=== PATIENT | male | born 1960 | race Caucasian/White ===

== ENCOUNTER 2016-09-22 13:53 | Emergency (ER) | payer OTHER, BC ==
[2016-09-22 14:00] VITALS: BP 155/95; PULSE 79; TEMP 98; BMI 34.8
[2016-09-22] MEDS ORDERED: KETOROLAC TROMETHAMINE 60 MG/2 ML VIAL IM ONE (14:59)
[2016-09-22] MEDS ORDERED: KETOROLAC TROMETHAMINE 60 MG/2 ML VIAL ONE (15:01)
--- NOTE | 2016-09-22 16:09 | PDOC ---
History of Present Illness - General Chief Complaint: Injury Stated Complaint: employee FALL, RT KNEE PAIN Time Seen by Provider: 09/22/16 14:22 History Source: Patient Exam Limitations: No Limitations - History of Present Illness Initial Comments: 09/22/16 16:04 CC right knee pain; both shoulder pain post fall in snow today Occurred: reports: just prior to arrival Severity: reports: moderate Pain Location: reports: lower extremity, upper extremity Method of Injury: Yes: fall (on snow at work today) Past History - Past Medical History Allergies/Adverse Reactions: Allergies Allergy/AdvReac Type Severity Reaction Status Date / Time No Known Drug Allergies Allergy Verified 09/22/16 13:57 Home Medications: Ambulatory Orders Pantoprazole Sodium [Protonix] 40 mg PO DAILY 03/08/15 Amlodipine Besylate/Benazepril [Lotrel 5-20 mg Capsule] 1 each PO DAILY Oxycodone HCl/Acetaminophen [Percocet 5-325 mg Tablet] 1 tab PO Q6H PRN #60 tablet 09/19/15 GI Disorders: Yes (REFLUX) HTN: Yes - Surgical History Abdominal Surgery: Yes (umbalical hernia) Neurologic Surgery: Yes (BACK SX, rt knee) - Psycho/Social/Smoking Cessation Hx Anxiety: No Suicidal Ideation: No Smoking Status: No Smoking History: Never smoked Have you smoked in the past 12 months: No Number of Cigarettes Smoked Daily: 0 If you are a former smoker, when did you quit?: 2010 Information on smoking cessation initiated: No Hx Alcohol Use: No Drug/Substance Use Hx: No Substance Use Type: None Hx Substance Use Treatment: No Review of Systems - Review of Systems Constitutional: No: Chills, Fever, Malaise HEENTM: No: Symptoms Reported Respiratory: No: Symptoms reported, Cough Integumentary: No: Lesions Neurological: No: Symptoms reported, Numbness Hematologic/Lymphatic: Yes: Symptoms Reported *Physical Exam - Vital Signs Last Vital Signs Temp Pulse Resp BP Pulse Ox 98.0 F 79 18 155/95 100 09/22/16 13:57 09/22/16 13:57 09/22/16 13:57 09/22/16 13:57 09/22/16 13:57 - Physical Exam General Appearance: Yes: Appropriately Dressed. No: Apparent Distress HEENT: positive: TMs Normal, Pharynx Normal Neck: positive: Tender, Supple, Lymphadenopathy (R). negative: Rigid, Lymphadenopathy (L) Respiratory/Chest: negative: Chest Tender, Lungs Clear Musculoskeletal: positive: Other (tender to area of both shoulder, FROM; also tender to right Knee lateral aspect, no joint laxity) ED Treatment Course - RADIOLOGY Radiology Studies Ordered: Category Date Time Status KNEE 2 POS-RIGHT [RAD] Stat Radiology 09/22/16 14:59 Completed SHOULDER-LEFT [RAD] Stat Radiology 09/22/16 14:59 Completed SHOULDER-RIGHT [RAD] Stat Radiology 09/22/16 14:59 Completed - Medications Given in the ED: ED Medications Discontinued Medications Generic Name Dose Route Start Last Admin Trade Name Freq PRN Reason Stop Dose Admin Ketorolac Tromethamine 60 mg 09/22/16 14:59 09/22/16 15:11 Toradol Injection - IM 09/22/16 15:00 60 mg ONCE ONE Administration Medical Decision Making - Medical Decision Making 09/22/16 16:07 gave toradol now feeling slight better; xrays= no fxs *DC/Admit/Observation/Transfer Diagnosis at time of Disposition: Strain of knee and leg, right Qualifiers: Encounter type: initial encounter Qualified Code(s): S86.911A - Strain of unspecified muscle(s) and tendon(s) at lower leg level, right leg, initial encounter Strain of shoulder, right Qualifiers: Encounter type: initial encounter Qualified Code(s): S46.911A - Strain of unspecified muscle, fascia and tendon at shoulder and upper arm level, right arm , initial encounter - Discharge Dispostion Disposition: HOME Condition at time of disposition: Stable Admit: No - Patient Instructions Additional Instructions: advil 400mg 3 times daily; see local MD if no better x 3 days - Post Discharge Activity Work/School Note: Back to Work
== END 2016-09-22 16:14 | disposition home or self-care (01) ==
LOC: JERFT 13:53
PROC: 3E0233Z Introduction of Anti-inflammatory into Muscle, Percutaneous Approach (ICD-10-PCS; principal; 2016-09-22)
DX: S86.911A Strain of unspecified muscle(s) and tendon(s) at lower leg level, right leg, initial encounter (principal); S46.911A Strain of unspecified muscle, fascia and tendon at shoulder and upper arm level, right arm, initial encounter; W00.2XXA Other fall from one level to another due to ice and snow, initial encounter; Y93.89 Activity, other specified; Y92.239 Unspecified place in hospital as the place of occurrence of the external cause; Y99.0 Civilian activity done for income or pay; I10 Essential (primary) hypertension; K21.9 Gastro-esophageal reflux disease without esophagitis
CPT/HCPCS: 73030-TC-LT; 73030-TC-RT; 73560-TC-RT; 99281-25

== ENCOUNTER 2017-07-19 14:02 | Emergency (ER) | payer BC, OTHER ==
[2017-07-19 14:07] VITALS: BP 156/88; PULSE 84; TEMP 98.7; BMI 33.5
[2017-07-19] MEDS ORDERED: IBUPROFEN 600 MG TABLET (FP) PO ONE (14:09)
--- NOTE | 2017-07-19 14:51 | PDOC ---
History of Present Illness - General History Source: Patient Exam Limitations: No Limitations <Leslie Santiago - Last Filed: 07/19/17 14:47> - History of Present Illness Initial Comments: 07/19/17 14:51 The patient is a 57 year old male, with a significant past medical history of HTN, borderline diabetes, acid reflux, who presents to the emergency department s/p left hand injury. 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 Patient states he continued to work when he noticed that his hand became noticeably swollen and a bump developed. He states trouble turning the doorknob and putting on his shoes. He rates his current pain 6 or 7/10. He states that he is right-hand dominant. He denies numbness, tingling, bruising. He denies elbow, wrist, or shoulder pain. He denies any recent fevers, chills, headache or dizziness. He denies any recent nausea, vomit, diarrhea or constipation. He denies any recent chest pain or shortness of breath. He denies any recent dysuria, frequency, urgency or hematuria. Allergies: NKA Past surgical history: Meniscus tear. Back surgery. Social History: Occasional alcohol and cigarette use. Denies recreational drug use. Primary Care Physician: Delia Henderson <Tianna Rose - Last Filed: 07/19/17 14:56> - General Chief Complaint: Pain, Acute Stated Complaint: left hand pain Time Seen by Provider: 07/19/17 14:07 Past History - Past Medical History COPD: No GI Disorders: Yes (REFLUX) HTN: Yes - Surgical History Abdominal Surgery: Yes (umbalical hernia) Neurologic Surgery: Yes (BACK SX, rt knee) - Suicide/Smoking/Psychosocial Hx Smoking Status: No Smoking History: Never smoked Have you smoked in the past 12 months: No Number of Cigarettes Smoked Daily: 0 If you are a former smoker, when did you quit?: 2010 Information on smoking cessation initiated: No Hx Alcohol Use: Yes Drug/Substance Use Hx: No Substance Use Type: Alcohol Hx Substance Use Treatment: No <Leslie Santiago - Last Filed: 07/19/17 14:47> <Tianna Rose - Last Filed: 07/19/17 14:56> - Past Medical History Allergies/Adverse Reactions: Allergies Allergy/AdvReac Type Severity Reaction Status Date / Time No Known Drug Allergies Allergy Verified 07/19/17 14:03 Home Medications: Ambulatory Orders Pantoprazole Sodium [Protonix] 40 mg PO DAILY 03/08/15 Amlodipine Besylate/Benazepril [Lotrel 5-20 mg Capsule] 1 each PO DAILY Oxycodone HCl/Acetaminophen [Percocet 5-325 mg Tablet] 1 tab PO Q6H PRN #60 tablet 09/19/15 Metformin HCl [Metformin HCl ER] 500 mg PO DAILY 07/19/17 Rosuvastatin Calcium [Crestor] 0 mg PO HS 07/19/17 Review of Systems - Review of Systems Comments:: 07/19/17 14:52 GENERAL/CONSTITUTIONAL: No fever or chills. No weakness. HEAD, EYES, EARS, NOSE AND THROAT: No change in vision. No ear pain or discharge. No sore throat. GASTROINTESTINAL: No nausea, vomiting, diarrhea or constipation. CARDIOVASCULAR: No chest pain or shortness of breath. RESPIRATORY: No cough, wheezing, or hemoptysis. MUSCULOSKELETAL: +left hand swelling and pain. No joint pain. SKIN: No rash NEUROLOGIC: No headache, vertigo, loss of consciousness, or change in strength/ sensation. <Tianna Rose - Last Filed: 07/19/17 14:56> *Physical Exam - Vital Signs Last Vital Signs Temp Pulse Resp BP Pulse Ox 98.7 F 84 16 156/88 97 07/19/17 14:03 07/19/17 14:03 07/19/17 14:03 07/19/17 14:03 07/19/17 14:03 <Leslie Santiago - Last Filed: 07/19/17 14:47> - Vital Signs Last Vital Signs Temp Pulse Resp BP Pulse Ox 98.7 F 84 16 156/88 97 07/19/17 14:03 07/19/17 14:03 07/19/17 14:03 07/19/17 14:03 07/19/17 14:03 - Physical Exam Comments: 07/19/17 14:53 GENERAL: Awake, alert, and fully oriented, in no acute distress HEAD: No signs of trauma EYES: PERRLA, EOMI, sclera anicteric, conjunctiva clear ENT: Auricles normal inspection, nares patent, Moist mucosa NECK: Normal ROM, supple, no lymphadenopathy, JVD, or masses LUNGS: Breath sounds equal, clear to auscultation bilaterally. No wheezes, and no crackles HEART: Regular rate and rhythm, normal S1 and S2, no murmurs, rubs or gallops ABDOMEN: Soft, nontender, normoactive bowel sounds. No guarding, no rebound. No masses EXTREMITIES: Left lower extremity - FROM, non tender, wrist, shoulder. Dorsal tenderness to palpation over the 2nd and 3d metacarpal. No ecchymosis. Distally neurovascular intact. 2+ radial ulnar pulses. No clubbing or cyanosis. No cords or erythema NEUROLOGICAL: Normal speech SKIN: Warm, Dry, normal turgor, no rashes or lesions noted. <Tianna Rose - Last Filed: 07/19/17 14:56> ED Treatment Course - RADIOLOGY Radiology Studies Ordered: Category Date Time Status HAND- LEFT [RAD] Stat Radiology 07/19/17 14:09 Taken - Medications Given in the ED: ED Medications Discontinued Medications Generic Name Dose Route Start Last Admin Trade Name Freq PRN Reason Stop Dose Admin Ibuprofen 600 mg 07/19/17 14:09 07/19/17 14:18 Motrin - PO 07/19/17 14:10 600 mg ONCE ONE Administration <Leslie Santiago - Last Filed: 07/19/17 14:47> - Medications Given in the ED: ED Medications Discontinued Medications Generic Name Dose Route Start Last Admin Trade Name Freq PRN Reason Stop Dose Admin Ibuprofen 600 mg 07/19/17 14:09 07/19/17 14:18 Motrin - PO 07/19/17 14:10 600 mg ONCE ONE Administration <Tianna Rose - Last Filed: 07/19/17 14:56> Medical Decision Making - Medical Decision Making 07/19/17 14:48 57-year-old male status post left crush injury to his left hand. minimal bony tenderness no ecchymosis and minimal swelling distally neurovascularly intact Differential soft tissue injury versus fracture less likely. Plan NSAIDs x-ray ice and elevation likely outpatient follow-up with hand <Leslie Santiago - Last Filed: 07/19/17 14:47> *DC/Admit/Observation/Transfer - Discharge Dispostion Admit: No <Leslie Santiago - Last Filed: 07/19/17 14:47> - Attestations Scribe Attestion: 07/19/17 14:55 Documentation prepared by Tianna Rose, acting as medical staff specialist for Leslie Santiago MD. <Tianna Rose - Last Filed: 07/19/17 14:56> Diagnosis at time of Disposition: Hand contusion - Discharge Dispostion Disposition: HOME Condition at time of disposition: Improved - Referrals Referrals: Delia Henderson MD [Primary Care Provider] - Yordan Womack MD [Staff Physician] - - Patient Instructions Printed Discharge Instructions: Contusion Additional Instructions: . Ice and elevate your hand to reduce swelling. He can take ibuprofen 600 mg every 8 hours as needed for pain. He can follow-up with a hand specialist as needed for persistent pain beyond 1 week see referral information for Dr. Womack. Return for any problems or concerns - Post Discharge Activity Forms/Work/School Notes: Back to Work
== END 2017-07-19 15:01 | disposition home or self-care (01) ==
LOC: FER 14:02
DX: S69.92XA Unspecified injury of left wrist, hand and finger(s), initial encounter (principal); I10 Essential (primary) hypertension; Z87.891 Personal history of nicotine dependence; K21.9 Gastro-esophageal reflux disease without esophagitis; W23.0XXA Caught, crushed, jammed, or pinched between moving objects, initial encounter; Y93.89 Activity, other specified; Y92.239 Unspecified place in hospital as the place of occurrence of the external cause; Y99.0 Civilian activity done for income or pay
CPT/HCPCS: 73130-TC-LT; 99282-25

== ENCOUNTER 2017-11-03 06:06 | Day surgery (SDC) | payer BC ==
[2017-11-02 09:13] VITALS: BMI 33.5
[2017-11-03] MEDS ORDERED: DEXAMETHASONE SOD PHOSPHATE/PF 10 MG/ML SDV ONE (07:32)
[2017-11-03] MEDS ORDERED: BUPIVACAINE HCL/PF 0.25% (2.5MG/ML) 10 ML VIAL ONE (07:32)
[2017-11-03] MEDS ORDERED: MIDAZOLAM HCL 2 MG/2 ML SINGLE DOSE VIAL ONE ×2 (07:33)
[2017-11-03] MEDS ORDERED: BUPIVACAINE HCL/PF 0.5% (5MG/ML) 10 ML VIAL ONE (07:38)
--- NOTE | 2017-11-03 08:06 | HP ---
Satellite [facility] - Chief Complaint Chief Complaint: right shoulder pain - Past Medical History Allergies/Adverse Reactions: Allergies Allergy/AdvReac Type Severity Reaction Status Date / Time No Known Drug Allergies Allergy Verified 11/03/17 06:33 - Current Medications Current Medications: Home Medications Medication Instructions Recorded Pantoprazole Sodium [Protonix] 40 mg PO DAILY 03/08/15 Amlodipine Besylate/Benazepril 1 each PO DAILY 07/01/15 [Lotrel 5-20 mg Capsule] Oxycodone HCl/Acetaminophen 1 tab PO Q6H PRN #60 tablet 09/19/15 [Percocet 5-325 mg Tablet] Metformin HCl [Metformin HCl ER] 500 mg PO DAILY 07/19/17 Rosuvastatin Calcium [Crestor] 0 mg PO HS 07/19/17 Satellite Physical Exam - Physical Examination Vital Signs: Vital Signs Period Temp Pulse Resp BP Sys/Morales Pulse Ox Last 24 Hr 97.6 F-97.6 F 72-72 20-20 151-151/76-76 97 Extremities: Other (+ impingement sign and weakness with TDA) Satellite Impression/Plan - Impression/Plan Impression: impingement right shoulder +/- RC tear Operative Procedure: arthroscopy right shoulder with possible repair Date to be Performed: 11/03/17
[2017-11-03] MEDS ORDERED: ROCURONIUM BROMIDE 50 MG/5 ML VIAL ONE (08:14)
[2017-11-03] MEDS ORDERED: fentaNYL CITRATE 250 MCG/5 ML VIAL ONE (08:14)
[2017-11-03] MEDS ORDERED: PROPOFOL 20 ML ONE (08:14)
[2017-11-03] MEDS ORDERED: LIDOCAINE HCL/PF 2% SDV 5ML VIAL ONE (08:14)
[2017-11-03] MEDS ORDERED: DEXAMETHASONE SOD PHOSPHATE 4 MG/1 ML VIAL ONE (08:15)
[2017-11-03] MEDS ORDERED: ceFAZolin SODIUM 1 GM VIAL IVPB ONE (08:20)
[2017-11-03] MEDS ORDERED: ceFAZolin SODIUM 1 GM VIAL ONE (08:31)
--- NOTE | 2017-11-03 08:46 | OP ---
Operative Note - Note: Operative Date: 11/03/17 ([facility]) Pre-Operative Diagnosis: right shoulder impingement, partial rct Operation: right shoulder arthroscopy with SAD Post-Operative Diagnosis: Same as Pre-op Surgeon: Edil Sanders Wallcovering Hanger: Perico Alcala Anesthesiologist/AGRICULTURAL EQUIPMENT SALES MANAGER: Brenden Jones Anesthesia: General, Local Specimens Removed: shavings Estimated Blood Loss (mls): 5 Operative Report Dictated: Yes
[2017-11-03] MEDS ORDERED: GLYCOPYRROLATE 0.2 MG/1 ML VIAL ONE (08:54)
[2017-11-03] MEDS ORDERED: NEOSTIGMINE METHYLSULFATE 0.5 MG/ML - 10 ML MDV ONE (08:54)
[2017-11-03] MEDS ORDERED: ONDANSETRON 4 MG/2 ML VIAL IVPUSH PRN (09:13)
[2017-11-03] MEDS ORDERED: oxyCODONE HCL 5 MG TABLET PO PRN (09:13)
[2017-11-03] MEDS ORDERED: LACTATED RINGERS SOLUTION 1,000 ML IV SCH (09:15)
[2017-11-03 10:15] VITALS: TEMP 97.6
--- NOTE | 2017-11-03 11:06 | OP ---
DATE OF OPERATION: 11/03/2017 PREOPERATIVE DIAGNOSIS: Impingement syndrome, right shoulder. POSTOPERATIVE DIAGNOSIS: Impingement syndrome, right shoulder. SURGICAL PROCEDURE: Arthroscopy of the shoulder with subacromial decompression. SURGICAL ATTENDING: Edil Sanders MD SUPERVISOR SPINNING: JACQUELIN Lowe ANESTHESIA: Regional and general. CLOSURE: 3-0 nylon. COMPLICATIONS: None. CONDITION: To recovery room in stable condition. DESCRIPTION OF PROCEDURE: Patient was taken to the operating room on November 03, 2017. Scalene block followed by general anesthesia was administered by the anesthesiologist. IV Kefzol was given prophylactically prior to the case. Patient was placed in the beach-chair position with all prominences well padded. Right shoulder was prepped and draped in the usual sterile fashion. The posterior portal was made 2 fingerbreadths below the acromion with a 15 blade followed by a blunt trocar. Circumferential examination of the glenohumeral joint revealed the following: Intact labrum circumferentially, intact glenoid and humeral head articular cartilage. No loose bodies in the axillary pouch. Some fraying in the subscapularis, but it was intact. Biceps tendon was intact to its insertion. Supraspinatus, infraspinatus, and teres minor also intact to its insertion. The fluid was drained from the shoulder, and the trocar was removed. The posterior trocar was redirected in the subacromial space. The accessory lateral portal was made with 15 blade followed by a blunt trocar. A large amount of subacromial bursal tissue was encountered. This was debrided using the shaver and the ArthroCare device. Coracoacromial ligament was identified and detached off the anterior acromion. It was visualized to drop inferior and was further debrided. Subacromial debrided off bone was performed using a shaver and the mathieu until the appropriate height was gained in the subacromial space. The humeral head was clearly visualized, removed of any fibrous tissue, exposing healthy rotator cuff beneath. All fibrous tissue encasing the humeral head was debrided using the ArthroCare. Fluid was drained from the shoulder, trocars were removed, and the portal sites were closed using 3-0 nylon and a sterile pressure dressing, followed by a sling was applied. Patient awakened from anesthesia and transferred to recovery in stable condition. No complications. Estimated blood loss negligible. Mustapha MCKEON/[id number]
[2017-11-03 12:54] VITALS: BP 132/67; PULSE 70
--- NOTE | 2017-11-04 17:40 | PATH ---
Surgical Pathology Report Patient Name: MEETA YEH Med. Rec. #: [id number] /Age/Gender: 1960 (Age: 57) / M Account: [id number] Location: [facility] SURGICAL Taken: 11/03/2017 Received: 11/03/2017 Reported: 11/04/2017 Physicians: Edil Sanders M.D. Specimen(s) Received RIGHT SHOULDER SHAVINGS Clinical History Right shoulder tear Final Diagnosis SHOULDER SHAVINGS, RIGHT, ARTHROSCOPY: FRAGMENTS OF BENIGN CARTILAGE, DENSE FIBROCONNECTIVE TISSUE, ADIPOSE TISSUE, AND SKELETAL MUSCLE. Electronically Signed Lilian Ernandez M.D. Gross Description Received in formalin, labeled "right shoulder shavings," is a 4.6 x 3.7 x 0.3 cm. aggregate of vasquez-yellow soft tissue fragments. A patient service representative portion is submitted in one cassette. /11/03/201711/03/2017
== END 2017-11-03 12:05 | disposition home or self-care (01) ==
LOC: JASU-SURG 06:06
PROVIDERS: ATTEND Orthopaedic Surgery
PROC: 0RBJ4ZZ Excision of Right Shoulder Joint, Percutaneous Endoscopic Approach (ICD-10-PCS; principal; 2017-11-03 08:00)
DX: M75.41 Impingement syndrome of right shoulder (principal)
CPT/HCPCS: 82962; 88304-TC; 94760

== ENCOUNTER 2018-10-14 08:33 | Emergency (ER) | payer OTHER, BC ==
[2018-10-14 08:52] VITALS: BP 166/76; PULSE 83; TEMP 97.5; BMI 25.1
[2018-10-14] MEDS ORDERED: BACITRACIN 15 GM TUBE TOPICAL OINTMENT TP ONE (09:42)
[2018-10-14] MEDS ORDERED: BACITRACIN 15 GM TUBE TOPICAL OINTMENT ONE (09:43)
--- NOTE | 2018-10-14 09:43 | PDOC ---
History of Present Illness - General Chief Complaint: Injury Stated Complaint: FALL Time Seen by Provider: 10/14/18 09:38 History Source: Patient Exam Limitations: No Limitations - History of Present Illness Initial Comments: 10/14/18 09:41 While at work this morning, loading a rolling cart onto a truck the cart pulled away causing him to fall forward catching himself with his arms but scraping his lower legs. There was no head injury, no back injury. States has mild tenderness to his right shoulder, site of rotator cuff surgery 2 years ago. And some scrapes to bilateral shins. 10/14/18 16:05 Occurred: reports: just prior to arrival Severity: reports: mild, moderate Pain Location: reports: chest (chest wall tenderness with flexion and extension of arms), lower extremity (bilateral shins) Loss of Consciousness: no loss of consciousness Associated Symptoms (Fall): denies symptoms Past History - Travel Traveled outside of the country in the last 30 days: No Close contact w/someone who was outside of country & ill: No - Past Medical History Allergies/Adverse Reactions: Allergies Allergy/AdvReac Type Severity Reaction Status Date / Time No Known Drug Allergies Allergy Verified 10/14/18 08:48 Home Medications: Ambulatory Orders Pantoprazole Sodium [Protonix] 40 mg PO DAILY 03/08/15 Amlodipine Besylate/Benazepril [Lotrel 5-20 mg Capsule] 1 each PO DAILY Metformin HCl [Metformin HCl ER] 500 mg PO DAILY 07/19/17 Rosuvastatin Calcium [Crestor] 0 mg PO HS 07/19/17 Naproxen [Naprosyn -] 500 mg PO BID #30 tablet 10/14/18 Anemia: No Asthma: No Cancer: No Cardiac Disorders: No CVA: No COPD: No CHF: No Dementia: No Diabetes: Yes GI Disorders: Yes (REFLUX) Disorders: No HTN: Yes Hypercholesterolemia: No Liver Disease: No Seizures: No Thyroid Disease: No - Surgical History Abdominal Surgery: Yes (umbilical hernia) Neurologic Surgery: Yes (BACK SX, rt knee) Orthopedic Surgery: Yes (right arthroscopy) - Suicide/Smoking/Psychosocial Hx Smoking Status: No Smoking History: Former smoker Have you smoked in the past 12 months: No Number of Cigarettes Smoked Daily: 0 If you are a former smoker, when did you quit?: 2010 Information on smoking cessation initiated: No Hx Alcohol Use: No Drug/Substance Use Hx: No Substance Use Type: Alcohol Hx Substance Use Treatment: No Review of Systems - Review of Systems Able to Perform ROS?: Yes Is the patient limited Syriac proficient: Yes Constitutional: Yes: Symptoms Reported, See HPI, Malaise HEENTM: Yes: See HPI. No: Symptoms Reported Respiratory: Yes: See HPI. No: Symptoms reported, Cough ABD/GI: Yes: See HPI. No: Symptoms Reported Musculoskeletal: Yes: Symptoms Reported, See HPI, Muscle Pain, Muscle Weakness Integumentary: Yes: Symptoms Reported, See HPI, Bruising Neurological: No: Symptoms reported All Other Systems: Reviewed and Negative (spines.) *Physical Exam - Vital Signs Last Vital Signs Temp Pulse Resp BP Pulse Ox 97.5 F L 83 16 166/76 100 10/14/18 08:41 10/14/18 08:41 10/14/18 08:41 10/14/18 08:41 10/14/18 08:41 - Physical Exam General Appearance: Yes: Appropriately Dressed, Apparent Distress HEENT: positive: MARLINE, Normal ENT Inspection, TMs Normal, Pharynx Normal Neck: positive: Supple. negative: Tender Respiratory/Chest: positive: Chest Tender, Lungs Clear, Other (chest wall pain with flexion and extension and pressure with pushing of pectoralis ) Musculoskeletal: positive: Normal Inspection Extremity: positive: Normal Capillary Refill, Normal Range of Motion, Tender. negative: Normal Inspection (superficial abrasions noted to bilateral shins) Integumentary: positive: Normal Color Neurologic: positive: digital music instructor II-XII NML intact, Fully Oriented, Alert, Normal Mood/ Affect Moderate Sedation - Procedure Monitoring Vital Signs: Procedure Monitoring Vital Signs Temperature 97.5 F L 10/14/18 08:41 Pulse Rate 83 10/14/18 08:41 Respiratory Rate 16 10/14/18 08:41 Blood Pressure 166/76 10/14/18 08:41 O2 Sat by Pulse Oximetry (%) 100 10/14/18 08:41 Progress Note - Progress Note Progress Note: Status post fall with multiple contusions, no evidence of significant bony injury therefore x-rays help. Wounds were cleaned and treated with bacitracin ointment, provided ibuprofen for pain relief and will follow-up as needed *DC/Admit/Observation/Transfer Diagnosis at time of Disposition: Multiple contusions - Discharge Dispostion Disposition: HOME Condition at time of disposition: Stable Decision to Admit order: No - Prescriptions Prescriptions: Naproxen [Naprosyn -] 500 mg PO BID #30 tablet - Referrals Referrals: Delia Henderson MD [Primary Care Provider] - - Patient Instructions Printed Discharge Instructions: Easy Bruising (Alternative Therapy) Additional Instructions: Rest, ice to area on and off for 15 minutes 4-6 times a day Avoid heavy lifting or exercise until pain and swelling is resolved or until further directed Keep area highly elevated to reduce swelling Use splints/Adonis wrap as directed Followup with orthopedist in one to 2 days if not improving, if significantly improved may wait one week for followup with orthopedist May use ibuprofen every 6 hours as needed for pain - Post Discharge Activity Forms/Work/School Notes: Back to Work
== END 2018-10-14 09:44 | disposition home or self-care (01) ==
LOC: JER 08:33 → JERFT 08:33
DX: S40.011A Contusion of right shoulder, initial encounter (principal); S20.219A Contusion of unspecified front wall of thorax, initial encounter; W18.39XA Other fall on same level, initial encounter; Y93.89 Activity, other specified; Y92.238 Other place in hospital as the place of occurrence of the external cause; Y99.0 Civilian activity done for income or pay; I10 Essential (primary) hypertension; E11.9 Type 2 diabetes mellitus without complications; Z79.84 Long term (current) use of oral hypoglycemic drugs; E78.00 Pure hypercholesterolemia, unspecified
CPT/HCPCS: 99281-25

== ENCOUNTER 2018-10-27 06:24 | Emergency (ER) | payer OTHER, BC ==
[2018-10-27 06:51] VITALS: BP 164/76; PULSE 74; TEMP 97.9; BMI 33.5
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
[2018-10-27] MEDS ORDERED: IBUPROFEN 600 MG TABLET (FP) PO ONE ×2 (07:34→07:38)
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
== END 2018-10-27 09:21 | disposition home or self-care (01) ==
LOC: JER 06:24
DX: S46.811A Strain of other muscles, fascia and tendons at shoulder and upper arm level, right arm, initial encounter (principal); V43.52XA Car driver injured in collision with other type car in traffic accident, initial encounter; Y92.414 Local residential or business street as the place of occurrence of the external cause; Y93.89 Activity, other specified; Y99.8 Other external cause status; I10 Essential (primary) hypertension; E11.9 Type 2 diabetes mellitus without complications; Z79.84 Long term (current) use of oral hypoglycemic drugs; K21.9 Gastro-esophageal reflux disease without esophagitis
CPT/HCPCS: 72125-TC; 73030-TC-RT-FY; 99282-25

== ENCOUNTER 2020-10-10 10:10 | Emergency (ER) | payer OTHER ==
[2020-10-10] MEDS ORDERED: NAPROXEN 500 MG TABLET PO ONE (10:26)
[2020-10-10] MEDS ORDERED: NAPROXEN 500 MG TABLET ONE (10:37)
[2020-10-10 10:40] VITALS: BP 158/80; PULSE 98; TEMP 99.3; BMI 32.1
== END 2020-10-10 13:09 | disposition home or self-care (01) ==
LOC: FER 10:10
DX: M25.521 Pain in right elbow (principal); M54.5 Low back pain
CPT/HCPCS: 72131-TC; 73070-TC-RT-FY; 99284-25

== ENCOUNTER 2021-03-28 04:57 | Day surgery (SDC) | payer OTHER ==
[2021-03-26 16:06] VITALS: BMI 31.6
[2021-03-28 09:44] VITALS: TEMP 97.3
[2021-03-28 10:43] VITALS: BP 120/67; PULSE 68
[2021-03-28 11:56] LABS: BASO % 0.5 % (0-2.0); EOS % 1.9 % (0-4.5); HEMATOCRIT 44.8 % (35.4-49); HEMOGLOBIN 15.8 GM/dL (11.7-16.9); LYMPH % 31.7 % (8-40); MCH 29.9 pg (25.7-33.7); MCHC 35.2 g/dl (32.0-35.9); MEAN PLT VOLUME 7.8 fl (7.5-11.1); MONO % 8.2 % (3.8-10.2); NEUT % 57.7 % (42.8-82.8); PLATELET COUNT 241 10^3/uL (134-434); RBC 5.27 M/mm3 (4.00-5.60); RDW 13.2 % (11.9-15.9); WHITE BLOOD COUNT 9.7 K/mm3 (4.0-10.0)
[2021-03-28 12:09] LABS: INR 1.05 (0.83-1.09); PROTHROMBIN TIME (PATIENT) 12.7 SEC (9.7-13.0)
[2021-03-28 12:23] LABS: CHLORIDE 103 mmol/L (98-107); SODIUM 140 mmol/L (136-145)
[2021-03-28 12:25] LABS: BLOOD UREA NITROGEN 11.9 mg/dL (7-18); CALCIUM 8.5 mg/dL (8.5-10.1)
[2021-03-28 12:26] LABS: ALBUMIN 3.7 g/dl (3.4-5.0); ANION GAP 6 MMOL/L (8-16); CO2 31 mmol/L (21-32); GLUCOSE,RANDOM 106 mg/dL (74-106)
[2021-03-28 12:29] LABS: CREATININE 0.9 mg/dL (0.55-1.3); SGOT/AST 32 U/L (15-37); SGPT/ALT 47 U/L (13-61)
[2021-03-28 12:30] LABS: BILIRUBIN,TOTAL 0.4 mg/dL (0.2-1); TOT PROT 7.5 g/dl (6.4-8.2)
[2021-03-28 12:31] LABS: ALK PHOS 71 U/L (45-117)
== END 2021-03-28 11:21 | disposition home or self-care (01) ==
LOC: JASU-ENDO 04:57
PROVIDERS: ATTEND Internal Medicine Gastroenterology
PROC: 0DB98ZX Excision of Duodenum, Via Natural or Artificial Opening Endoscopic, Diagnostic (ICD-10-PCS; 2021-03-28)
PROC: 0DB68ZX Excision of Stomach, Via Natural or Artificial Opening Endoscopic, Diagnostic (ICD-10-PCS; 2021-03-28)
PROC: 0DB38ZX Excision of Lower Esophagus, Via Natural or Artificial Opening Endoscopic, Diagnostic (ICD-10-PCS; 2021-03-28)
PROC: 0DBF8ZX Excision of Right Large Intestine, Via Natural or Artificial Opening Endoscopic, Diagnostic (ICD-10-PCS; principal; 2021-03-28 09:00)
DX: Z12.11 Encounter for screening for malignant neoplasm of colon (principal); Z86.010 Personal history of colon polyps; D12.6 Benign neoplasm of colon, unspecified; K31.7 Polyp of stomach and duodenum; K29.50 Unspecified chronic gastritis without bleeding; K21.9 Gastro-esophageal reflux disease without esophagitis; I10 Essential (primary) hypertension; E11.9 Type 2 diabetes mellitus without complications; Z79.84 Long term (current) use of oral hypoglycemic drugs
CPT/HCPCS: 36415; 80053; 82941; 85025; 85610; 86140; 88305-TC; 88342-TC

== ENCOUNTER 2021-09-03 13:53 | Emergency (ER) | payer OTHER ==
[2021-09-03] MEDS ORDERED: ACETAMINOPHEN 325 MG TABLET (FP) PO ONE (13:55)
[2021-09-03] MEDS ORDERED: DIPHTH,PERTUSS(ACELL),TET 0.5 ML DISP.SYRIN IM ONE ×2 (13:55→14:20)
[2021-09-03 14:01] VITALS: BP 151/82; PULSE 71; TEMP 98.2; BMI 33.5
[2021-09-03] MEDS ORDERED: ACETAMINOPHEN 325 MG TABLET (FP) ONE (14:20)
[2021-09-03] MEDS ORDERED: LIDOCAINE 5% TOPICAL PATCH TP ONE (15:19)
[2021-09-03] MEDS ORDERED: LIDOCAINE 5% TOPICAL PATCH ONE (16:54)
[2021-09-03] MEDS ORDERED: LIDOCAINE PATCH REMOVAL MC SCH (22:00)
== END 2021-09-03 18:04 | disposition home or self-care (01) ==
LOC: FER 13:53
PROC: 3E0234Z Introduction of Serum, Toxoid and Vaccine into Muscle, Percutaneous Approach (ICD-10-PCS; principal; 2021-09-03)
DX: S09.90XA Unspecified injury of head, initial encounter (principal); W17.89XA Other fall from one level to another, initial encounter; V58.2XXA Person on outside of pick-up truck or van injured in noncollision transport accident in nontraffic accident, initial encounter
CPT/HCPCS: 70450-TC; 71045-TC-FY; 72100-TC-FY; 72125-TC; 73070-TC-LT-FY; 90715; 99285-25